=== PATIENT | female | born 1960 | race African-American/Black ===

== ENCOUNTER 2017-08-03 10:38 | Emergency (ER) | payer SELFPAY ==
[~2017-08-03] VITALS: Ht 162.6 cm; Wt 60.0 kg
[2017-08-03 10:40] VITALS: BP 153/73; PULSE 94; RESP 12; TEMP 98.3; O2SAT 98
[2017-08-03 11:49] VITALS: BP 176/72; PULSE 48; RESP 18; TEMP 98; O2SAT 98
[2017-08-03] MEDS ORDERED: ASPIRIN 325 MG TAB PO ONE (12:00)
[2017-08-03] MEDS ORDERED: SODIUM CHLORIDE 0.9% FLUSH 10 ML FLUSH IV FLUSH PRN (12:00)
--- NOTE | 2017-08-03 12:13 | PD ---
HPI Chief Complaint: Flank/Kidney Pain Time Seen by Provider: 11:51 Travel History International Travel<30 days: No Contact w/Intl Traveler<30days: No Traveled to known affect area: No History of Present Illness HPI Patient's 56-year-old female presents emergency department for evaluation of left-sided low back pain associated with some dysuria. Patient states she's also had some suprapubic discomfort. She states "I think I have a ladder infection." Patient states is happened to her in the past with very similar circumstances. She does however also endorses diarrhea today. Denies any fever denies any chest pain or shortness of breath. Does endorse some mild nausea without vomiting. Denies any blood in the stool. Denies a history of kidney stones. Symptoms are moderate, gradually worsening over the past few days. Denies any vaginal bleeding vaginal discharge. PFSH Past Medical History Genitourinary: Yes (FREQUENT UTIS ) Tetanus Vaccination: < 5 Years ?: Not : 5 Para: 4 Miscarriage: 1 Tubal Ligation: Yes Past Surgical History Hysterectomy: Yes (COMPLETE ) Social History Alcohol Use: No Tobacco Use: Yes Substance Use: No Allergies-Medications (Allergen,Severity, Reaction): Coded Allergies: acetaminophen (Verified Allergy, Severe, 08/03/17) SOB, SYNCOPE propoxyphene (Verified Allergy, Severe, 08/03/17) SOB, SYNCOPE Reported Meds & Prescriptions Reported Meds & Active Scripts Active Keflex (Cephalexin) 500 Mg Cap 500 Mg PO Q6H 5 Days Review of Systems Except as stated in HPI: all other systems reviewed are Neg Physical Exam Narrative GENERAL: Developed well-nourished no obvious distress SKIN: Focused skin assessment warm/dry. HEAD: Atraumatic. Normocephalic. EYES: Pupils equal and round. No scleral icterus. No injection or drainage. ENT: No nasal bleeding or discharge. Mucous membranes pink and moist. NECK: Trachea midline. No JVD. CARDIOVASCULAR: Regular rate and rhythm. No murmur appreciated. RESPIRATORY: No accessory muscle use. Clear to auscultation. Breath sounds equal bilaterally. GASTROINTESTINAL: Abdomen soft, non-tender, nondistended. Hepatic and splenic margins not palpable. Minimal Left-sided CVA tenderness. MUSCULOSKELETAL: No obvious deformities. No clubbing. No cyanosis. No edema. NEUROLOGICAL: Awake and alert. No obvious cranial nerve deficits. Motor grossly within normal limits. Normal speech. PSYCHIATRIC: Appropriate mood and affect; insight and judgment normal. Data Data Last Documented VS Vital Signs Date Time Temp Pulse Resp B/P (MAP) Pulse Ox O2 Delivery O2 Flow Rate FiO2 08/03/17 16:00 08/03/17 11:49 98.0 48 18 98 Room Air Orders Orders Complete Blood Count With Diff (08/03/17 11:58) Comprehensive Metabolic Panel (08/03/17 11:58) Lipase (08/03/17 11:58) Prothrombin Time / Inr (Pt) (08/03/17 11:58) Act Partial Throm Time (Ptt) (08/03/17 11:58) Urinalysis - C+S If Indicated (08/03/17 11:58) Iv Access Insert/Monitor (08/03/17 11:58) Ecg Monitoring (08/03/17 11:58) Oximetry (08/03/17 11:58) Sodium Chloride 0.9% Flush (Ns Flush) (08/03/17 12:00) Electrocardiogram (08/03/17 11:58) Aspirin (Aspirin) (08/03/17 12:00) Ct Abd/Pel W/O Iv Contrast (08/03/17 ) Labs Laboratory Tests Test 08/03/17 12:18 08/03/17 13:13 Prothrombin Time 11.6 SEC Prothromb Time International Ratio 1.0 RATIO Activated Partial Thromboplast Time 22.8 SEC Urine Color YELLOW Urine Turbidity HAZY Urine pH 6.0 Urine Specific [place] 1.012 Urine Protein NEG mg/dL Urine Glucose (UA) NEG mg/dL Urine Ketones TRACE mg/dL Urine Occult Blood SMALL Urine Nitrite NEG Urine Bilirubin NEG Urine Urobilinogen LESS THAN 2.0 MG/DL Urine Leukocyte Esterase NEG Urine RBC 4 /hpf Urine Squamous Epithelial Cells <1 /hpf Microscopic Urinalysis Comment CULT NOT INDICATED Blood Urea Nitrogen 4 MG/DL Creatinine 0.73 MG/DL Random Glucose 79 MG/DL Total Protein 7.4 GM/DL Albumin 3.5 GM/DL Calcium Level 8.8 MG/DL Alkaline Phosphatase 75 U/L Aspartate Amino Transf (AST/SGOT) 24 U/L Alanine Aminotransferase (ALT/SGPT) 14 U/L Total Bilirubin 0.5 MG/DL Sodium Level 140 MEQ/L Potassium Level 4.2 MEQ/L Chloride Level 108 MEQ/L Carbon Dioxide Level 27.5 MEQ/L Anion Gap 5 MEQ/L Estimat Glomerular Filtration Rate 101 ML/MIN Lipase 67 U/L White Blood Count 4.6 TH/MM3 Red Blood Count 4.11 MIL/MM3 Hemoglobin 13.7 GM/DL Hematocrit 40.3 % Mean Corpuscular Volume 98.0 FL Mean Corpuscular Hemoglobin 33.2 PG Mean Corpuscular Hemoglobin Concent 33.9 % Red Cell Distribution Width 13.1 % Platelet Count 279 TH/MM3 Mean Platelet Volume 8.0 FL Neutrophils (%) (Auto) 46.4 % Lymphocytes (%) (Auto) 42.4 % Monocytes (%) (Auto) 7.2 % Eosinophils (%) (Auto) 2.9 % Basophils (%) (Auto) 1.1 % Neutrophils # (Auto) 2.1 TH/MM3 Lymphocytes # (Auto) 2.0 TH/MM3 Monocytes # (Auto) 0.3 TH/MM3 Eosinophils # (Auto) 0.1 TH/MM3 Basophils # (Auto) 0.1 TH/MM3 CBC Comment DIFF FINAL Differential Comment MDM Medical Decision Making Medical Screen Exam Complete: Yes Emergency Medical Condition: Yes Differential Diagnosis kidney stone, UTI, hematuria. Narrative Course Patient roomed emergency department, offered pain medicine she would like to have an aspirin. UA shows minimal blood with nitrate and leukocyte Estrace negative. Patient has been set up for a CT renal stone protocol if negative will place on antibiotics to follow-up with her primary care physician for resolution of symptoms and discussed may need a cystoscopy in the future if the hematuria does not resolve. Diagnosis Primary Impression: Hematuria Additional Instructions: Follow-up with your primary care physician, if the hematuria does not resolve in a week you may need to see a urologist for consideration of a cystoscopy. Scripts Cephalexin (Keflex) 500 Mg Cap 500 MG PO Q6H for Infection for 5 Days, #20 CAP 0 Refills Prov: Nacho Talbot MD 08/03/17 Disposition: 01 DISCHARGE HOME Condition: Stable Nacho Talbot MD Aug 03, 2017 12:13
[2017-08-03 12:38] LABS: BLOOD, URINE SMALL (NEG); COMMENT (UR) CULT NOT INDICATED; CULTURE IF INDICATED CULT NOT INDICATED; GLUCOSE,URINE NEG (NEG); KETONE, URINE TRACE mg/dL (NEG); NITRITE,URINE NEG (NEG); SQUAMOUS EPITHELIAL CELL URINE <1 /hpf (0-5); URINE COLOR YELLOW (YELLW/STRAW)
[2017-08-03 12:39] LABS: APTT (PATIENT) 22.8 SEC (24.3-30.1); PROTHROMBIN TIME - PATIENT 11.6 SEC (9.8-11.6)
[2017-08-03 12:53] LABS: ALKALINE PHOSPHATASE 75 U/L (45-117); TOTAL BILIRUBIN ADULT 0.5 MG/DL (0.2-1.0)
[2017-08-03 12:54] LABS: ALT (GPT) 14 U/L (10-53); ANION GAP 5 MEQ/L (5-15); AST (GOT) 24 U/L (15-37); BICARBONATE 27.5 MEQ/L (21.0-32.0); BLOOD UREA NITROGEN 4 MG/DL (7-18); CHLORIDE 108 MEQ/L (98-107); GLOMERULAR FILTRATION RATE 101 ML/MIN (>89); SODIUM (NA) 140 MEQ/L (136-145)
[2017-08-03 12:57] LABS: POTASSIUM 4.2 MEQ/L (3.5-5.1)
[2017-08-03 13:39] LABS: AUTOMATED NEUTROPHIL # 2.1 TH/MM3 (1.8-7.7); BASOPHIL # 0.1 TH/MM3 (0-0.2); BASOPHIL % 1.1 % (0.0-2.0); EOSINOPHIL # 0.1 TH/MM3 (0-0.4); EOSINOPHIL % 2.9 % (0.0-4.0); HEMATOCRIT 40.3 % (35.0-46.0); HEMO FLAGS DIFF FINAL; LYMPH % 42.4 % (9.0-44.0); MEAN CORPUSCULAR HEMOGLOBIN 33.2 PG (27.0-34.0); MEAN CORPUSCULAR HGB CONC 33.9 % (32.0-36.0); MONO % 7.2 % (0.0-8.0); NEUT % 46.4 % (16.0-70.0); PLATELET COUNT 279 TH/MM3 (150-450); RED BLOOD COUNT 4.11 MIL/MM3 (4.00-5.30); RED CELL DISTRIBUTION WIDTH 13.1 % (11.6-17.2); WHITE BLOOD COUNT 4.6 TH/MM3 (4.0-11.0)
--- NOTE | 2017-08-03 15:03 | RADRPT ---
EXAM DATE/TIME: 08/03/2017 14:27 [facility] COMPARISON: No previous studies available for comparison. INDICATIONS : Bilateral flank pain. Fever. ORAL CONTRAST: No oral contrast ingested. RADIATION DOSE: 13.55 CTDIvol (mGy) MEDICAL HISTORY : None SURGICAL HISTORY : Tubal ligation. Hysterectomy. ENCOUNTER: Initial ACUITY: 1 day PAIN SCALE: 7/10 LOCATION: Bilateral flank TECHNIQUE: Volumetric scanning of the abdomen and pelvis was performed. Using automated exposure control and ad justment of the mA and/or kV according to patient size, radiation dose was kept as low as reasonably achievable to obtain optimal diagnostic quality images. DICOM format image data is available electro nically for review and comparison. FINDINGS: LOWER LUNGS: The visualized lower lungs are clear. LIVER: Homogeneous density without lesion. There is no dilation of the biliary tree. No calcified gallston es. SPLEEN: Normal size without lesion. PANCREAS: Within normal limits. KIDNEYS: Normal in size and shape. There is no mass, stone, or hydronephrosis. ADRENAL GLANDS: Within normal limits. VASCULAR: There is no aortic aneurysm. BOWEL/MESENTERY: Extensive diverticulosis of the colon more contrast within the descending and sigmoid colon. No defin ite diverticulitis. No perforation or abscess.. There is no free intraperitoneal air or fluid. ABDOMINAL WALL: Within normal limits. RETROPERITONEUM: There is no lymphadenopathy. BLADDER: No wall thickening or mass. REPRODUCTIVE: Within normal limits. Uterus is absent. INGUINAL: There is no lymphadenopathy or hernia. MUSCULOSKELETAL: Scoliosis and degenerative changes. CONCLUSION: 1. No renal calculi or hydronephrosis. 2. Extensive diverticulosis without diverticulitis. Dionicio aY MD on August 03, 2017 at 14:54 Board Certified Radiologist. This report was verified electronically.
[2017-08-03] MEDS ORDERED: CEPH-460 PO (15:31)
--- NOTE | 2017-08-04 21:03 | EKG ---
Date Performed: 08/03/2017 Time Performed: 13:20:35 PTAGE: 56 years EKG: SINUS BRADYCARDIA BORDERLINE ECG NO PREVIOUS TRACING DOCTOR: Ap Kenyon Interpretating Date/Time 08/04/2017 20:53:46
== END 2017-08-03 16:07 | disposition home or self-care (01) ==
LOC: NEPD 10:38
DX: R31.9 Hematuria, unspecified (principal); R94.31 Abnormal electrocardiogram [ECG] [EKG]; Z72.0 Tobacco use
CPT/HCPCS: 74176; 80053; 81001; 83690; 85025; 85610; 85730; 93005